=== PATIENT | male | born 1970 | race Hispanic/Latino ===

== ENCOUNTER → 2018-02-13 | Outpatient (CLI) | payer OTHER ==
--- NOTE | 2018-02-13 12:50 | Diagnostic Imaging Report ---
PROCEDURE:EXTREMITY ULTRASOUND COMPARISON:None. INDICATIONS:Puncture Wound of Right Upper Extremity TECHNIQUE:Focused sonographic evaluation of the right upper extremity around the reported puncture site was performed in the transverse and sagittal planes. FINDINGS: Minimal amount of subcutaneous edema. No echogenic foreign body. No drainable fluid collection. No mass is visualized. No increased vascularity. CONCLUSION: No acute sonographic abnormality. Dictated by: Ki Beltran M.D. on 02/13/2018 at 12:51 Electronically approved by: Ki Beltran M.D. on 02/13/2018 at 12:51
== END ==
LOC: US 11:40
PROVIDERS: ATTEND Family Medicine
DX: S41.131A Puncture wound without foreign body of right upper arm, initial encounter (principal)
CPT/HCPCS: 76882

== ENCOUNTER 2018-08-08 15:46 | Observation (INO) | payer OTHER ==
[~2018-08-08] VITALS: Ht 180.3 cm; Wt 81.9 kg
[~2018-08-08 15:46] MED LIST: DEXAMETHASONE SOD PHOS INJ 4 MG/ML VIAL ONE; FENTANYL CITRATE/PF 100MCG/2 ML INJ ONE; GLYCOPYRROLATE INJ 1MG/ 5 ML SYR ONE; LABETALOL HCL 5 MG/ML 20ML VIAL ONE; LIDOCAINE HCL 2% LOCAL INJ 5 ML SDV VIAL INJ ONE; MIDAZOLAM HCL 2 MG/2 ML VIAL ONE; NEOSTIGMINE 5 MG/5ML SYR ONE; ONDANSETRON HCL INJ 2 MG/ML VIAL ONE; PROPOFOL IV EMULSION 10 MG/ML 20 ML VIAL ONE; ROCURONIUM BROMIDE 10 MG/ML 5ML VIAL ONE; SEVOFLURANE INHAL SOLN 250 ML PEN BTL ONE
[2018-08-08] MEDS ORDERED: CEFAZOLIN SOD 2 GM in WATER STERILE 10ML VIAL 10 ML IV STA (16:03)
[2018-08-08 16:13] LABS: BASOPHILS # (AUTO) 0.1 (0.0-0.1); BASOPHILS % 0.4 % (0.0-1.0); EOSINOPHILS # (AUTO) 0.3 (0.0-0.4); EOSINOPHILS % 2.4 % (0.0-6.0); HEMOGLOBIN 13.9 g/dL (14.0-18.0); LYMPHOCYTES # (AUTO) 2.1 (1.0-3.2); LYMPHOCYTES % 16.7 % (18.0-39.1); MEAN CORPUSCULAR HEMOGLOBIN 28.3 pg (28-32); MEAN CORPUSCULAR HGB CONC 32.3 g/dL (31-35); MEAN CORPUSCULAR VOLUME 87.6 fL (81-99); MONOCYTES # (AUTO) 0.8 (0.2-0.8); MONOCYTES % 6.6 % (4.4-11.3); NEUTROPHILS # (AUTO) 9.2 (2.1-6.9); NEUTROPHILS % 72.9 % (38.7-80.0); PLATELET COUNT 307 x10e3/uL (140-360); RED BLOOD COUNT 4.91 x10e6/uL (4.3-5.7); RED CELL DISTRIBUTION WIDTH 12.7 % (11.7-14.4)
[2018-08-08] MEDS ORDERED: MORPHINE SULFATE 2 MG/ML SYR IV PRN (16:15)
[2018-08-08] MEDS ORDERED: ONDANSETRON HCL INJ 2 MG/ML VIAL IV PRN (16:15)
[2018-08-08 16:29] LABS: ALANINE AMINOTRANSFERASE 43 IU/L (0-55); ALBUMIN 4.3 g/dL (3.5-5.0); ALBUMIN/GLOBULIN RATIO 1.3 (0.8-2.0); ALKALINE PHOSPHATASE 94 IU/L (40-150); BLOOD UREA NITROGEN 10 mg/dL (7-26); BUN/CREATININE RATIO 11 (6-25); CALCIUM 9.8 mg/dL (8.4-10.2); CARBON DIOXIDE 24 mmol/L (22-29); CHLORIDE 106 mmol/L (98-107); CREATININE, SERUM 0.87 mg/dL (0.72-1.25); EST GLOMERULAR FILTRATION RATE > 60 ML/MIN (60-); GLUCOSE 89 mg/dL (74-118); SODIUM 142 mmol/L (136-145)
[2018-08-08] MEDS ORDERED: CEFAZOLIN SOD 1 GM VIAL ONE (16:41)
--- NOTE | 2018-08-08 18:06 | Diagnostic Imaging Report ---
Exam: Right foot series, 3 views. Clinical History: Hematoma, right knee pain Comparison: None. Findings: 3 views of the right foot. There is normal bone mineralization. Negative for acute, displaced fracture or dislocation. Mild degenerative changes in the first toe interphalangeal joint. Moderate soft tissue swelling in the dorsal aspect of the foot. Impression: 1. Moderate soft tissue swelling in the dorsal aspect of the foot, without underlying acute, displaced fracture or dislocation. Signed by: Dr. Hernandez Mckenzie M.D. on 08/08/2018 6:03 PM
--- NOTE | 2018-08-08 18:07 | Diagnostic Imaging Report ---
Exam: lower leg right, 2 views: <> History: Knee pain, infected hematoma Comparison: None. Findings: There is normal bone mineralization. No acute, displaced fracture or dislocation. Joint spaces preserved. No abnormal soft tissue calcification or soft tissue defect. No soft tissue swelling. No radiopaque foreign bodies are noted. Impression: 1. Unremarkable study. No radiopaque foreign bodies. Signed by: Dr. Hernandez Mckenzie M.D. on 08/08/2018 6:04 PM
--- NOTE | 2018-08-08 18:08 | Diagnostic Imaging Report ---
Exam: Right Knee Series. History: Knee pain, rule out foreign body Comparison: None. Findings: 3 views of the right knee. There is normal bone mineralization. Negative for acute, displaced fracture or dislocation. The joint spaces are normal. No abnormal soft tissue calcification or mass. No effusions or soft tissue swelling. No radiopaque foreign bodies. Impression: 1. No acute abnormalities. No radiopaque foreign bodies are noted. Signed by: Dr. Hernandez Mckenzie M.D. on 08/08/2018 6:05 PM
[2018-08-08] MEDS ORDERED: NEOSTIGMINE 1 MG/ML 10ML VIAL ONE (18:24)
[2018-08-08] MEDS ORDERED: MEPERIDINE HCL INJ 50 MG/ML INJ ONE (18:48)
[2018-08-08] MEDS ORDERED: HYDROMORPHONE 1MG/1ML INJ IV PRN (19:00)
[2018-08-08 19:40] VITALS: BP 122/70
[2018-08-08 19:50] VITALS: BP 122/70
[2018-08-08 20:06] VITALS: BP 122/70
--- NOTE | 2018-08-08 20:12 | Operative Report ---
DATE OF PROCEDURE: August 08, 2018 PREOPERATIVE DIAGNOSES: Laceration of the right lower extremity and hematoma, right lower extremity. POSTOPERATIVE DIAGNOSES: Laceration of the right lower extremity and hematoma, right lower extremity. PROCEDURE PERFORMED: Exploration of wound of the right leg and infiltration of hematoma. ANESTHESIA: General. ESTIMATED BLOOD LOSS: Minimal. DRAINS: A 10 mm flat Santiago-Irelnad drain. COMPLICATIONS: None. INDICATIONS AND FINDINGS: The patient is a 48-year-old male who on Saturday was at work and threw a bag into the trash and sustained a laceration to his right leg when a broken bottle inside the bag rubbed his right lower extremity. The patient was seen at his primary care physician's office where the laceration was repaired. Today, the patient noted some bleeding coming from the wound and pain, reason for which he wnet back to the clinic. He was then referred to surgery for further evaluation. Patient on physical examination presented with a sharp edged laceration located obliquely in the posterior leg over the gastrocnemius area superior to the Achilles tendon. The laceration was about 6 cm in length. There was swelling of the leg and the foot. The patient had gross sensory function to pinprick over the right lower extremity. He was not able to extend or flex the foot and he also complained of pain to the right knee and was not able to flex or extend the leg; however, there was no history of fall or any other trauma except for the cut as per his history. The right knee examination revealed no acute process There was a palpable dorsalis pedis pulse and there was 2 edema of the dorsum of the foot and swelling of the calf region without edema. There was draining hematoma, seen in my office. The patient was then sent to the emergency room for admission for exploration of the wound. Preoperative x-rays of the knee, leg, and foot revealed no acute process. DESCRIPTION OF PROCEDURE: With the patient lying on the operative table in the supine position after administration of general endotracheal anesthesia, he was prepped and draped and given 2 grams of Ancef IV. The patient was then placed in the prone position and prepped and draped for exploration of the wound of the posterior right leg. The sutures were removed and then we drained about 100 mL of hematoma. There was a laceration that involved the fascia of the area of the gastrocnemius muscle and at the beginning of the soleus fascia. The gastrocnemius muscle and its fascia were lacerated with herniation of the muscle belly. I aspirated and irrigated out all the hematoma and irrigated the wound copiously, I searched for bleeding coming from o major vessels and I did not see any nor did I see any bleeding coming from the muscle fibers. I did not find any evidence of nerve laceration or any nerve damage .I extended the fascial laceration by about 2 cm on each direction across the length of the laceration and the skin incision was also extended to a total of about 10 to 11 cm. At this point, we copiously irrigated the wound again, then we placed 10 mm flat Santiago-[place] drain to drain the wound and brought it out through a stab wound in the posterolateral aspect of the right leg in the upper part of the incision, secured there with 2-0 silk. Because of the edema of the muscle, we did not attempt to close the fascia because it was technically not possible due to the edema of the muscle. I closed the skin with interrupted 3-0 vertical mattress silks and sterile dressing was applied. The leg was then placed in a sterile dressing that extended from the foot all the way up to below the knee and then drain was connected to self suction. The patient tolerated the procedure well, was taken to recovery room in stable condition.I discussed the introperative findingswith his . They are aware that a muscle hernia will takke place and may have to be repaired later on. Job#: [id number] ROSALVA SCHULTZ
[2018-08-08] MEDS: HYDROMORPHONE 2MG/ML 2 MG/ML ML IV PRN ×2 (20:16→23:53)
[2018-08-08] MEDS ORDERED: MORPHINE SULFATE INJ 4 MG/ML INJ IV PRN (22:00)
[2018-08-08] MEDS: CEFAZOLIN SOD 1 GM VIAL IV SCH (23:53)
[2018-08-08] MEDS: DEXTROSE 5%/LACTATED RINGERS 1,000 ML IV SCH (23:53)
[2018-08-09] VITALS (9 sets, daily range): BP systolic 96–139; BP diastolic 54–83
[2018-08-09] MEDS ORDERED: CEFAZOLIN SOD 1 GM/D5W 50ML 50 ML IV SCH
[2018-08-09 05:55] LABS: BASOPHILS % 0.2 % (0.0-1.0); HEMATOCRIT 36.9 % (38.2-49.6); LYMPHOCYTES # (AUTO) 1.2 (1.0-3.2); LYMPHOCYTES % 12.2 % (18.0-39.1); MEAN CORPUSCULAR HEMOGLOBIN 28.4 pg (28-32); MEAN CORPUSCULAR HGB CONC 32.5 g/dL (31-35); MEAN CORPUSCULAR VOLUME 87.4 fL (81-99); MONOCYTES # (AUTO) 0.7 (0.2-0.8); MONOCYTES % 6.7 % (4.4-11.3); NEUTROPHILS % 80.4 % (38.7-80.0); PLATELET COUNT 283 x10e3/uL (140-360); RED BLOOD COUNT 4.22 x10e6/uL (4.3-5.7); RED CELL DISTRIBUTION WIDTH 12.5 % (11.7-14.4)
[2018-08-09] MEDS ORDERED: INFLUENZA VIRUS VAC SPLIT INJ 0.5 ML SYR IM ONE (06:00)
[2018-08-09] MEDS: CEFAZOLIN SOD 1 GM VIAL IV SCH ×4 (06:03→23:46)
[2018-08-09 06:15] LABS: ANION GAP 14.4 mmol/L (8-16); BLOOD UREA NITROGEN 14 mg/dL (7-26); BUN/CREATININE RATIO 16 (6-25); CALCIUM 9.5 mg/dL (8.4-10.2); CARBON DIOXIDE 24 mmol/L (22-29); CHLORIDE 105 mmol/L (98-107); EST GLOMERULAR FILTRATION RATE > 60 ML/MIN (60-); GLUCOSE 143 mg/dL (74-118); POTASSIUM 4.4 mmol/L (3.5-5.1); SODIUM 139 mmol/L (136-145)
[2018-08-09] MEDS: HYDROMORPHONE 2MG/ML 2 MG/ML ML IV PRN ×4 (07:28→23:46)
[2018-08-09] MEDS: ONDANSETRON HCL INJ 2 MG/ML VIAL IV PRN ×3 (07:28→18:13)
[2018-08-09] MEDS: DEXTROSE 5%/LACTATED RINGERS 1,000 ML IV SCH (08:17)
[2018-08-09] MEDS ORDERED: HYDROCODONE/APAP 7.5MG-325MG 1 EA TAB PO PRN (11:45)
[2018-08-10 04:00] VITALS: BP 145/68
[2018-08-10 05:09] LABS: BASOPHILS % 0.4 % (0.0-1.0); EOSINOPHILS # (AUTO) 0.2 (0.0-0.4); EOSINOPHILS % 2.6 % (0.0-6.0); HEMATOCRIT 36.4 % (38.2-49.6); HEMOGLOBIN 11.9 g/dL (14.0-18.0); LYMPHOCYTES # (AUTO) 1.8 (1.0-3.2); LYMPHOCYTES % 19.1 % (18.0-39.1); MEAN CORPUSCULAR HEMOGLOBIN 28.4 pg (28-32); MEAN CORPUSCULAR HGB CONC 32.7 g/dL (31-35); MEAN CORPUSCULAR VOLUME 86.9 fL (81-99); MONOCYTES # (AUTO) 0.8 (0.2-0.8); MONOCYTES % 8.8 % (4.4-11.3); NEUTROPHILS # (AUTO) 6.3 (2.1-6.9); NEUTROPHILS % 68.5 % (38.7-80.0); PLATELET COUNT 260 x10e3/uL (140-360); RED BLOOD COUNT 4.19 x10e6/uL (4.3-5.7); RED CELL DISTRIBUTION WIDTH 12.7 % (11.7-14.4)
[2018-08-10] MEDS: CEFAZOLIN SOD 1 GM VIAL IV SCH ×2 (06:06→11:58)
[2018-08-10 08:01] VITALS: BP 127/58
[2018-08-10 09:43] VITALS: BP 127/58
[2018-08-10 12:10] VITALS: BP 121/58
[2018-08-10] MEDS ORDERED: NORCO 7.5-3251 EACH PO (12:40)
[2018-08-10] MEDS ORDERED: KEFLEX500 MG PO (12:40)
--- OUTSIDE RECORDS SUMMARY | 2018-08-19 11:12 | XMS REPORT ---
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 Allergies, Adverse Reactions, Alerts This patient has no known allergies or adverse reactions. Medications This patient has no known medications. Results Test Description Test Time Test Comments Text Results Atomic Results Result Comments KNEE RIGHT THREE VIEWS 2018-08-08 18:04:00 [place] [address] Patient Name: DENISE MCCRAY MR #: [id number] : 1970 Age/Sex: 48/M Req #: [id number] [facility] Physician: Ordered by: SURI COLBY MD Report #: [id number] Location: OR Room/Bed: Procedure: [id number] DX/KNEE RIGHT THREE VIEWS Exam Date: 08/08/18 Exam Time: 1640 REPORT STATUS: Signed Exam: Right Knee Series. History: Knee pain, rule out foreign body Comparison: None. Findings: 3 views of the right knee. There is normal bone mineralization. Negative for acute, displaced fracture or dislocation. The joint spaces are normal. No abnormal soft tissue calcification or mass. No effusions or soft tissue swelling. No radiopaque foreign bodies. Impression: 1. No acute abnormalities. No radiopaque foreign bodies are noted. Signed by: Dr. Yaima Mckenzie M.D. on 08/08/2018 6:05 PM Dictated By: YAIMA MCKENZIE MD 04 Transcribed By: ALEXANDER on 08/08/181804 COPY TO: SURI COLBY MD LOWER LEG RIGHT 2018-08-08 18:03:00 [place] [address] Patient Name: DENISE MCCRAY MR #: [id number] : 1970 Age/Sex: 48/M Req #: [id number] Adm Physician: Ordered by: SURI COLBY MD Report #: [id number] Location: OR Room/Bed: Procedure: [id number] DX/LOWER LEG RIGHT Exam Date: 08/08/18 Exam Time: 1640 REPORT STATUS: Signed Exam: lower leg right, 2 views: <> History: Knee pain, infected hematoma Comparison: None. Findings: There is normal bone mineralization. No acute, displaced fracture or dislocation. Joint spaces preserved. No abnormal soft tissue calcification or soft tissue defect. No soft tissue swelling. No radiopaque foreign bodies are noted. Impression: 1. Unremarkable study. No radiopaque foreign bodies. Signed by: Dr. Yaima Mckenzie M.D. on 08/08/2018 6:04 PM Dictated By: YAIMA MCKENZIE MD 03 Transcribed By: ALEXANDER on 08/08/181803 COPY TO: SURI COLBY MD FOOT RIGHT AP LAT 2018-08-08 18:02:00 [place] [address] Patient Name: DENISE MCCRAY MR #: [id number] : 1970 Age/Sex: 48/M Req #: [id number] Adm Physician: Ordered by: SURI COLBY MD Report #: [id number] Location: OR Room/Bed: Procedure: [id number] DX/FOOT RIGHT AP LAT Exam Date: 08/08/18 Exam Time: 1640 REPORT STATUS: Signed Exam: Right foot series, 3 views. Clinical History: Hematoma, right knee pain Comparison: None. Findings: 3 views of the right foot. There is normal bone mineralization. Negative for acute, displaced fracture or dislocation. Mild degenerative changes in the first toe interphalangeal joint. Moderate soft tissue swelling in the dorsal aspect of the foot. Impression: 1. Moderate soft tissue swelling in the dorsal aspect of the foot, without underlying acute, displaced fracture or dislocation. Signed by: Dr. Yaima Mckenzie M.D. on 08/08/2018 6:03 PM Dictated By: YAIMA MCKENZIE MD 02 Transcribed By: ALEXANDER on 08/08/181802 COPY TO: SURI COLBY MD [place] [address] Patient Name: DENISE MCCRAY MR #: [id number] : 1970 Age/Sex: 48/M Req #: [id number] Adm Physician: Ordered by: THOMAS MOORE DO Report #: [id number] Location: US Room/Bed: Procedure: [id number] US/US EXTREMITY SOLORIO NON-VAS Exam Date: Exam Time: REPORT STATUS: Signed PROCEDURE: EXTREMITY ULTRASOUND COMPARISON: None. INDICATIONS: Puncture Wound of Right Upper Extremity TECHNIQUE: Focused sonographic evaluation of the right upper extremity around the reported puncture site was performed in the transverse and sagittal planes. FINDINGS: Minimal amount of subcutaneous edema. No echogenic foreign body. No drainable fluid collection. No mass is visualized. No increased vascularity. CONCLUSION: No acute sonographic abnormality. Dictated by: Adelita Jones M.D. on 02/13/2018 at 12:51 Electronically approved by: Adelita Jones M.D. on 02/13/2018 at 12:51 Dictated By: ADELITA JONES MD 1251 Transcribed By: CRISTÓBAL on 02/13/18 1251 COPY TO: THOMAS MOORE DO
== END 2018-08-10 12:55 | disposition home or self-care (01) ==
LOC: ER 15:46 → OR 17:02 → MED/SURG 19:07
PROVIDERS: ADMIT Surgery; ATTEND Surgery
DX: S81.811A Laceration without foreign body, right lower leg, initial encounter (principal); S80.11XA Contusion of right lower leg, initial encounter; I10 Essential (primary) hypertension
CPT/HCPCS: 27603; 36415 ×3; 73562; 73590; 73620; 80048; 80053; 85025 ×3; 93005; 97116; 97161; 99284; G0378 ×3; J0690 ×3; J1100; J1170 ×2; J2001; J2175; J2250; J2405 ×2; J2710; J3490 ×2; J7120

== ENCOUNTER → 2019-06-23 | Outpatient (CLI) | payer OTHER ==
[~2019-06-23] MED LIST changes: -DEXAMETHASONE SOD PHOS INJ 4 MG/ML VIAL ONE; -FENTANYL CITRATE/PF 100MCG/2 ML INJ ONE; -GLYCOPYRROLATE INJ 1MG/ 5 ML SYR ONE; +KEFLEX500 MG PO; -LABETALOL HCL 5 MG/ML 20ML VIAL ONE; -LIDOCAINE HCL 2% LOCAL INJ 5 ML SDV VIAL INJ ONE; -MIDAZOLAM HCL 2 MG/2 ML VIAL ONE; -NEOSTIGMINE 5 MG/5ML SYR ONE; +NORCO 7.5-3251 EACH PO; -ONDANSETRON HCL INJ 2 MG/ML VIAL ONE; -PROPOFOL IV EMULSION 10 MG/ML 20 ML VIAL ONE; -ROCURONIUM BROMIDE 10 MG/ML 5ML VIAL ONE; -SEVOFLURANE INHAL SOLN 250 ML PEN BTL ONE
== END ==
LOC: RAD 11:54
PROVIDERS: ATTEND Family Medicine
DX: M79.89 Other specified soft tissue disorders (principal)
CPT/HCPCS: 93926; 93971

== ENCOUNTER → 2020-02-23 | Outpatient (CLI) | payer OTHER ==
--- NOTE | 2020-02-23 13:22 | Diagnostic Imaging Report ---
CT of the chest, without contrast, 02/23/2020. History: Right rib fractures, shortness of breath. Comparison: None available. Technique: Multidetector CT scanning of the chest was performed from the level of the thoracic inlet to the upper abdomen without IV or oral contrast. Dose reduction: The examination was performed according to departmental dose-optimization program which includes automated exposure control, adjustment of the mA and/or kV according to patient size and/or use of iterative reconstruction technique. Findings: The visualized portions of the thyroid gland are unremarkable. There is no axillary, mediastinal, or hilar lymphadenopathy. The heart is within normal limits of size. There is no pericardial effusion. The thoracic aorta is of normal course and caliber. The pulmonary artery is normal in caliber. The trachea and central airways are clear. The lungs demonstrate minimal linear atelectasis in the bilateral lower lobes. There is no focal consolidation. The pleural spaces are clear. There is no pleural effusion or pneumothorax. Limited evaluation of the upper abdomen demonstrates no focal hepatic lesions in the visualized portions of the liver. The spleen is within normal limits. The right seventh rib is fractured laterally which is best appreciated on axial image 68. There are minimally displaced fractures of the right ninth rib laterally which is best appreciated on axial image 103 and the right 10th rib laterally which is best appreciated on axial image 117. Posteriorly the right 9th and 10th ribs are fractured and minimally displaced, best seen on axial image 74 and 87 respectively. The right 11th rib is fractured posteriorly and minimally displaced, best seen on axial image 97. There is no significant surrounding callus formation about any of the fractures. IMPRESSION: 1. Multiple acute minimally displaced of the right seventh through 11th ribs. 2. No pneumothorax, pulmonary contusion, or parenchymal lung abnormality. Signed by: Eliecer Howe MD on 02/23/2020 1:19 PM
== END ==
LOC: CT 12:27
PROVIDERS: ATTEND Family Medicine
DX: R06.02 Shortness of breath (principal); R07.89 Other chest pain; S22.41XA Multiple fractures of ribs, right side, initial encounter for closed fracture
CPT/HCPCS: 71250